=== PATIENT | female | born 1975 | race Two or more races ===

== ENCOUNTER 2020-05-31 16:08 | Outpatient (CLI) | payer OTHER, SELFPAY ==
--- NOTE | ~2020-05-31 | MM_ITS ---
EXAMINATION: MM screening marium BI w franko HISTORY: Screening mammogram TECHNIQUE: Craniocaudal and mediolateral oblique 3-D tomosynthesis images were obtained and synthetic 2-D images were generated. CAD analysis was submitted and interpreted. COMPARISON: 04/20/2019 bilateral complete breast ultrasound 04/07/2019 bilateral digital screening mammogram 11/11/2017 diagnostic right digital mammogram and complete right breast ultrasound 11/05/2017, 02/28/2016 bilateral digital screening mammogram examinations BREAST PARENCHYMAL COMPOSITION: The breasts are heterogeneously dense, which may obscure small masses . FINDINGS: There is a 2 cm low-density circumscribed opacity with halo sign in the mid to lower outer right breast, consistent with a breast cyst. Otherwise no interval suspicious mass, architectural dis tortion, malignant calcification, skin thickening or retraction of the right breast is evident. Scattered bilateral punctate benign microcalcifications. There are left breast mammographic asymmetries. Diagnostic left mammogram and left breast ultrasound examination are recommended. IMPRESSION: 1. Left mammographic asymmetries 2. Diagnostic left mammogram and left breast ultrasound examination are recommended. BI-RADS Category 0: Incomplete: Needs additional imaging evaluation. Reviewed, dictated and finalized at location A. REPORT WRITER IMPRESSION: 1. Left mammographic asymmetries 2. Diagnostic left mammogram and left breast ultrasound examination are recomme nded. BI-RADS Category 0: Incomplete: Needs additional imaging evaluation.
== END 2020-05-31 16:09 | disposition home or self-care (01) ==
LOC: ANHIMG 16:10
PROVIDERS: Visit Provider Nurse Practitioner
DX: Z12.31 Encounter for screening mammogram for malignant neoplasm of breast (principal); R92.8 Other abnormal and inconclusive findings on diagnostic imaging of breast
CPT/HCPCS: 77063; 77067

== ENCOUNTER 2020-06-23 13:00 | Outpatient (CLI) | payer OTHER, SELFPAY ==
--- NOTE | ~2020-06-23 | MMUS_ITS ---
EXAMINATION: MM diagnostic mammo unilat LT, US breast LT limited HISTORY: Left breast masses on screening mammogram TECHNIQUE: Additional 3-D tomosynthesis images of the left breast were performed and synthetic 2-D im ages were generated. CAD analysis was submitted and interpreted. High resolution limited left breast ultrasound was performed. COMPARISON: 05/31/2020, 04/07/2019, 11/05/2017, 02/28/2016 BREAST PARENCHYMAL COMPOSITION: The breasts are heterogeneously dense, which may obscure small masses . FINDINGS: MAMMOGRAPHIC FINDINGS: Multiple oval, obscured masses are present in the upper breast. One measuring 8 mm is seen in the mid dle third of the breast at the 12:00 location in line with the nipple axis. A 10 mm mass is present i n the middle third of the upper inner breast at the 11:00 location 4 cm from the nipple. Additional m asses are difficult to measure due to surrounding fibroglandular content. ULTRASOUND: There is a 9 mm x 8 mm oval, circumscribed, parallel, complex cystic and solid mass with no posterior features or internal vascularity at the 11:00 location near the nipple. An 11 mm x 5 mm mass with si milar sonographic features is present at the 1:00 location 4 cm from the nipple. Cysts are noted at t he 12:00, 1:00, and 3:00 locations. IMPRESSION: 1. Probably benign left breast masses. 2. Recommend 6 month follow-up left diagnostic mammogram and ultrasound. BI-RADS category 3, probably benign findings. Reviewed, dictated and finalized at location A. IMPRESSION: 1. Probably benign left breast masses. 2. Recommend 6 month follow-up left diagnostic mammogram and ultrasound. BI-RADS category 3, probably benign findings.
== END 2020-06-23 13:01 | disposition home or self-care (01) ==
LOC: ANHIMG 13:02
PROVIDERS: Visit Provider Obstetrics & Gynecology Gynecology
DX: R92.8 Other abnormal and inconclusive findings on diagnostic imaging of breast (principal)
CPT/HCPCS: 76642; 77065

== ENCOUNTER 2020-12-23 10:58 | Outpatient (CLI) | payer OTHER, SELFPAY ==
--- NOTE | ~2020-12-23 | MMUS_ITS ---
EXAMINATION: MM diagnostic marium LT w franko, US breast LT limited HISTORY: Follow-up left breast masses TECHNIQUE: Additional 3-D tomosynthesis images of the left breast were performed and synthetic 2-D im ages were generated. CAD analysis was submitted and interpreted. High resolution Limited left breast ultrasound was performed. COMPARISON: Comparison to multiple prior studies sequentially, with oldest reviewed study dated 02/28/2016. BREAST PARENCHYMAL COMPOSITION: The breasts are heterogenously dense, which may obscure small masses. FINDINGS: MAMMOGRAPHIC FINDINGS: Stable benign-appearing partially obscured breast masses. No new masses, calcifications or architectu ral distortion in the left breast to suggest malignancy. ULTRASOUND: There are in numerable cysts throughout the left breast corresponding to the mammographic findings. L argest in the subareolar location at 12:00 measuring 1.2 cm maximum dimension. No suspicious masses t o suggest malignancy. IMPRESSION: 1. No evidence for malignancy in the left breast. Benign cysts. 2. Routine yearly screening mammogram and regular clinical breast examination are recommended. BI-RADS Category 2: Benign finding(s). Reviewed, dictated and finalized at location A. IMPRESSION: 1. No evidence for malignancy in the left breast. Benign cysts. 2. Routine yearly screening mammogram and regular clinical breast examination a re recommended. BI-RADS Category 2: Benign finding(s).
== END 2020-12-23 10:59 | disposition home or self-care (01) ==
LOC: ANHIMG 11:00
PROVIDERS: Visit Provider Obstetrics & Gynecology Gynecology
DX: R92.8 Other abnormal and inconclusive findings on diagnostic imaging of breast (principal)
CPT/HCPCS: 76642; 77061; 77065; G0279

== ENCOUNTER → 2021-01-20 02:30 | Outpatient (CLI) | payer OTHER, SELFPAY ==
[2021-01-20 17:01] LABS: SARS-CoV-2 RNA PCR Negative
== END ==
PROVIDERS: Visit Provider Internal Medicine Gastroenterology
DX: Z01.812 Encounter for preprocedural laboratory examination (principal); Z20.822 Contact with and (suspected) exposure to COVID-19
CPT/HCPCS: C9803; U0003; U0005

== ENCOUNTER 2021-01-23 01:54 | Day surgery (SDC) | payer OTHER, SELFPAY ==
[2021-01-16 16:02] VITALS: BMI 23.4
--- NOTE | 2021-01-20 14:34 | PM.HPGS ---
History of Present Illness History of Present Illness Consent: Risks, benefits, and alternatives have been discussed and questions answered. Patient agrees to proceed with procedure. Chief complaint: neoplasm screening Narrative: Ranjan Gregory is a 45 year old female referred for colon cancer screening Review of Systems Review of Systems: All systems reviewed & are unremarkable except as noted in HPI and below PMFSH Social History Social History (System 09/22/19 @ 10:23 by Isis Diallo) Smoking status: Never smoker Second hand tobacco smoke exposure: Yes Alcohol intake: never Substance use: never Substance use type: does not use Living arrangements: with family Spiritual care concerns: No Meds Home Medications and Allergies Home Medications Medication Instructions Recorded Confirmed Type levothyroxine 25 mcg PO DAILY 01/16/21 01/16/21 History vitamin B complex 1 cap PO DAILY 01/16/21 01/16/21 History Allergies Allergy/AdvReac Type Severity Reaction Status Date / Time No Known Allergies Allergy Unknown Verified 01/16/21 15:59 NKFA Allergy Unknown Unknown Uncoded 01/16/21 15:59 Exam Resp: Auscultation: clear to auscultation bilaterally Cardio: Rate: regular rate Rhythm: regular rhythm GI: GI Palp: Yes Soft to palpation and No Tenderness to palpation present (GI) Assessment and Plan Assessment and plan (1) Colon cancer screening: Code(s): Z12.11 - Encounter for screening for malignant neoplasm of colon Status: Acute Assessment and Plan: Colonoscopy with possible biopsy or polypectomy or cautery or injection of substances.
[2021-01-23 08:12] VITALS: BP 119/75; PULSE 72; RESP 16; TEMP 36.9; O2SAT 100; BMI 22.8
[2021-01-23] MEDS: LACTATED RINGERS 1,000 ML 150 ML IV CONT (08:15)
--- NOTE | 2021-01-23 08:17 | P.PNAN_ITS ---
Anes - Initial Pre Proc Eval Procedure: Operation Date: 01/23/21 09:00 Proposed Procedures p Screening Colonoscopy - Silvio Plummer MD Date/Time: 01/23/21 08:17 Surgeon: Silvio Plummer MD Pre Op Diagnosis: neoplasm screening Patient Data Age: 45 Gender: F Height: 1.63 m Weight: 60.2 kg Last Vital Signs Temp 36.9 C 01/23/21 08:12 Pulse 72 01/23/21 08:12 Resp 16 01/23/21 08:12 BP 119/75 01/23/21 08:12 Pulse Ox 100 01/23/21 08:12 Allergies Allergy/AdvReac Type Severity Reaction Status Date / Time No Known Allergies Allergy Unknown Verified 01/23/21 08:11 Home Medications Medication Instructions Recorded Confirmed Type levothyroxine 25 mcg PO DAILY 01/16/21 01/23/21 History vitamin B complex 1 cap PO DAILY 01/16/21 01/23/21 History Patient hx anesthesia problems: none Family hx anesthesia problems: none Results Review: All pre-operative results and documents have been reviewed as part of the pre-operative evaluation. [facility] Past Medical History Medical History Hypothyroid Social History Social History Smoking status: Never smoker Second hand tobacco smoke exposure: Yes Alcohol intake: never Substance use: never Substance use type: does not use Living arrangements: with family Spiritual care concerns: No Anes - Eval Final PreProcedure Day of Procedure 01/23/21 08:17 Patient weight: normal Heart: regular rate and rhythm Lungs: clear to auscultation Airway: Mallampati scale class II Neurological: alert and oriented Last oral intake: >/= 8 hours ASA classification: II Emergent: no Anesthetic plan: proceed Anesthesia type and monitoring: general GIVS and standard monitoring Results Review: All pre-operative results and documents have been reviewed as part of the pre-operative evaluation. Informed Consent: The patient's anesthetic plan and its attendant risks and benefits were discussed with the patient/family/POA. Questions were solicited and answers provided to the satisfaction of the patient/family/POA.
[2021-01-23 09:06] VITALS: BP 97/63; PULSE 64; RESP 19; O2SAT 100
[2021-01-23 09:16] VITALS: BP 95/66; PULSE 61; RESP 18; O2SAT 100
[2021-01-23 09:26] VITALS: BP 102/67; PULSE 56; RESP 18; O2SAT 100
== END 2021-01-23 09:36 | disposition home or self-care (01) ==
PROVIDERS: Visit Provider Internal Medicine Gastroenterology
PROC: 0DJD8ZZ Inspection of Lower Intestinal Tract, Via Natural or Artificial Opening Endoscopic (ICD-10-PCS; CPT 45378; principal; 2021-01-23 09:00)
DX: Z12.11 Encounter for screening for malignant neoplasm of colon (principal); E03.9 Hypothyroidism, unspecified
CPT/HCPCS: 45378; J2704; J7120

== ENCOUNTER 2021-12-04 11:15 | Outpatient (CLI) | payer OTHER, SELFPAY ==
--- NOTE | ~2021-12-04 | MMUS_ITS ---
EXAMINATION: MM diagnostic marium BI w franko, US breast BI complete HISTORY: Bilateral breast pain TECHNIQUE: ML, MLO and CC 3-D tomosynthesis images of both breasts were performed and synthetic 2-D i mages were generated. CAD analysis was submitted and interpreted. High resolution bilateral complete breast ultrasound including all 4 quadrants and subareolar areas was performed. COMPARISON: 12/23/2020 diagnostic left mammogram and limited left breast ultrasound /03/2020 diagnostic left mammogram and limited left breast ultrasound 05/31/2020 bilateral screening mammogram 04/20/2019 bilateral complete breast ultrasound examination 04/07/2019 bilateral screening mammogram BREAST PARENCHYMAL COMPOSITION: The breasts are extremely dense, which lowers the sensitivity of mamm ography. FINDINGS: MAMMOGRAPHIC FINDINGS: No suspicious mass or architectural distortion, malignant calcification, skin thickening or retractio n or significant new or developing density is detected. ULTRASOUND: There are occasional bilateral breast cysts, including on the right at 8:00 3 cm from the nipple wher e 2 cysts measure 1.7 x 1.7 cm and 1.1 x 0.9 cm, and on the left at 12:00, where there is a septated cyst measuring 0.6 x 1.1 x 1.0 cm and at 2:00 4 cm from nipple, measuring 6 x 7 mm .No suspicious solid lesion or shadowing of either breast is detected. IMPRESSION: 1. Bilateral breast cysts 2. Routine mammographic screening is recommended BI-RADS Category 2: Benign finding(s). Reviewed, dictated and finalized at location A. IMPRESSION: 1. Bilateral breast cysts 2. Routine mammographic screening is recommended BI-RADS Category 2: Benign finding(s).
== END 2021-12-04 11:16 | disposition home or self-care (01) ==
PROVIDERS: Visit Provider Nurse Practitioner
DX: N64.4 Mastodynia (principal); N60.02 Solitary cyst of left breast; N60.01 Solitary cyst of right breast
CPT/HCPCS: 76641; 77062; 77066; G0279

== ENCOUNTER 2022-12-03 08:29 | Outpatient (CLI) | payer OTHER, SELFPAY ==
--- NOTE | ~2022-12-03 | US_ITS ---
Limited Abdominal Sonogram: Real-time sonographic imaging of the right upper quadrant was performed. Clinical History: Abnormal liver enzymes Findings: The liver appears normal in overall echotexture, without evidence of intrahepatic biliary dilatation. There is a 1.6 cm hyperechoic mass, as well as an additional 1.5 cm hyperechoic mass, bot h most likely representing hemangiomas. Main portal vein demonstrates normal direction of flow. The g allbladder is well distended, and appears normal with no evidence of gallstone or wall thickening. Th e common bile duct measures 2 mm. The visualized pancreas, aorta, and IVC are unremarkable. Impression: 2 hyperechoic hepatic masses, as above, most likely hemangiomas. This can be further confirmed with f ollow-up MR, if indicated. Reviewed, dictated and finalized at location . Impression: 2 hyperechoic hepatic masses, as above, most likely hemangiomas. This can be fu rther confirmed with follow-up MR, if indicated.
== END 2022-12-03 08:30 | disposition home or self-care (01) ==
PROVIDERS: PCP Emergency Medicine; Visit Provider Emergency Medicine
DX: R74.01 Elevation of levels of liver transaminase levels (principal); R93.2 Abnormal findings on diagnostic imaging of liver and biliary tract
CPT/HCPCS: 76705

== ENCOUNTER 2023-03-04 14:27 | Outpatient (CLI) | payer OTHER, SELFPAY ==
--- NOTE | ~2023-03-04 | MM_ITS ---
EXAMINATION: MM screening marium BI w franko HISTORY: Screening TECHNIQUE: Craniocaudal and mediolateral oblique 3-D tomosynthesis images were obtained and synthetic 2-D images were generated. CAD analysis was submitted and interpreted. COMPARISON: No prior studies for comparison. BREAST PARENCHYMAL COMPOSITION: The breasts are heterogeneously dense, which may obscure small masses FINDINGS: There are asymmetries in the right breast in the upper outer quadrant posteriorly. There ar e subareolar asymmetries of the left breast. IMPRESSION: 1. Bilateral breast asymmetries. 2. Additional mammographic views and possible breast ultrasound are recommended. BI-RADS Category 0: Incomplete: Needs additional imaging evaluation. Reviewed, dictated and finalized at location A. SENSEI IMPRESSION: 1. Bilateral breast asymmetries. 2. Additional mammographic views and possible breast ultrasound are recommended . BI-RADS Category 0: Incomplete: Needs additional imaging evaluation.
== END 2023-03-04 14:28 | disposition home or self-care (01) ==
PROVIDERS: PCP Emergency Medicine; Visit Provider Nurse Practitioner
DX: Z12.31 Encounter for screening mammogram for malignant neoplasm of breast (principal); R92.8 Other abnormal and inconclusive findings on diagnostic imaging of breast
CPT/HCPCS: 77063; 77067

== ENCOUNTER 2023-04-05 12:46 | Outpatient (CLI) | payer OTHER, SELFPAY ==
--- NOTE | ~2023-04-05 | MMUS_ITS ---
EXAMINATION: MM diagnostic marium BI w franko, US breast RT limited HISTORY: Possible right breast mass and left breast asymmetry on screening mammogram TECHNIQUE: Additional 3-D tomosynthesis images of the breasts were performed and synthetic 2-D images were generated. CAD analysis was submitted and interpreted. High resolution limited right breast ult rasound was performed. COMPARISON: 03/04/2023, 12/04/2021, 12/23/2020, 06/23/2020, 05/31/2020 FINDINGS: MAMMOGRAPHIC FINDINGS: Left breast: There is a return to baseline fibroglandular appearance with spot compression of the lef t breast in the area questioned on screening mammogram. Right breast: There is a 10 mm x 7 mm low-density mass with microlobulated margins in the posterior t hird of the upper outer quadrant of the breast at the 10:00 location, 7 cm from the nipple. ULTRASOUND: Right breast: There is a 7 mm x 3 mm oval, circumscribed hypoechoic mass with no posterior features, and no internal vascularity at the 9:00 location, 5 cm from the nipple. There is a 12 mm x 5 mm oval, circumscribed, parallel, hypoechoic mass with no posterior features or internal vascularity at the 1 0:00 location, 7 cm from the nipple corresponding to the mammographic finding in question. Multiple c ysts are seen in the subareolar breast. In addition, there are multiple anechoic and hypoechoic, prob ably benign masses in the upper quadrant of the breast. IMPRESSION: 1. Multiple probably benign right breast masses. 2. Recommend 6 month follow-up right diagnostic mammogram and ultrasound. BI-RADS category 3, probably benign findings. Reviewed, dictated and finalized at location A. NURSE IMPRESSION: 1. Multiple probably benign right breast masses. 2. Recommend 6 month follow-up right diagnostic mammogram and ultrasound. BI-RADS category 3, probably benign findings.
== END 2023-04-05 12:47 | disposition home or self-care (01) ==
LOC: ANHIMG 12:47
PROVIDERS: PCP Emergency Medicine; Visit Provider Obstetrics & Gynecology Gynecology
DX: R92.8 Other abnormal and inconclusive findings on diagnostic imaging of breast (principal)
CPT/HCPCS: 76642; 77062; 77066; G0279

== ENCOUNTER 2023-10-09 10:44 | Outpatient (CLI) | payer OTHER, SELFPAY ==
--- NOTE | ~2023-10-09 | MMUS_ITS ---
EXAMINATION: MM diagnostic marium RT w franko, US breast RT complete HISTORY: Follow-up breast masses. TECHNIQUE: Additional 3-D tomosynthesis images of the right breast were performed and synthetic 2-D i mages were generated. CAD analysis was submitted and interpreted. High resolution complete right roman st ultrasound was performed. COMPARISON: Comparison to multiple prior studies sequentially, with oldest reviewed study dated 11/2020. BREAST PARENCHYMAL COMPOSITION: Dense: The breasts are heterogeneously dense, which may obscure small masses FINDINGS: MAMMOGRAPHIC FINDINGS: There are no suspicious masses, calcifications or architectural distortion in the right breast to sug gest malignancy. ULTRASOUND: Complete US of all 4 quadrants of the right breast and retroareolar region was reviewed. At 12:00, 4 cm from the nipple, there is a hypoechoic mass measuring 9 x 6 x 6 mm with some angular margins At 3: 00 near the nipple there is a cluster of cysts, largest measuring 1.4 cm. At 3:00, 2 cm from the nipp le there is a 4 mm cyst. At 4:00 near the nipple there is a 1.4 cm cyst. At 9:00, 3 cm from the nippl e there is an 8 mm cyst. At 9:00, 1 cm from the nipple there is a 1 cm cyst. IMPRESSION: 1. Stable likely benign right breast mass at 12:00, 4 cm from the nipple measuring 9 mm, likely compl icated cysts. 2. Recommend 6 month follow-up Limited right breast ultrasound BI-RADS category 3, probably benign findings. Reviewed, dictated and finalized at location B. IMPRESSION: 1. Stable likely benign right breast mass at 12:00, 4 cm from the nipple measur ing 9 mm, likely complicated cysts. 2. Recommend 6 month follow-up Limited right breast ultrasound BI-RADS category 3, probably benign findings.
== END 2023-10-09 10:45 | disposition home or self-care (01) ==
PROVIDERS: PCP Emergency Medicine; Visit Provider Obstetrics & Gynecology Gynecology
DX: R92.8 Other abnormal and inconclusive findings on diagnostic imaging of breast (principal)
CPT/HCPCS: 76641; 77061; 77065; G0279

== ENCOUNTER 2024-04-13 10:44 | Outpatient (CLI) | payer OTHER, SELFPAY ==
--- NOTE | ~2024-04-13 | MMUS_ITS ---
EXAMINATION: MM diagnostic marium BI w franko, US breast BI complete HISTORY: Follow-up breast mass. TECHNIQUE: Additional 3-D tomosynthesis images of the breasts were performed and synthetic 2-D images were generated. CAD analysis was submitted and interpreted. High resolution bilateral complete breas t ultrasound was performed. COMPARISON: Comparison to multiple prior studies sequentially, with oldest reviewed study dated 12/04. BREAST PARENCHYMAL COMPOSITION: Dense: The breasts are heterogeneously dense, which may obscure small masses FINDINGS: MAMMOGRAPHIC FINDINGS: There are no suspicious masses, calcifications or architectural distortion to suggest malignancy. No significant interval change. ULTRASOUND: Complete US of all 4 quadrants of the breast/s and retroareolar region was reviewed. There are multip le cysts of both breasts. There are no suspicious masses in either breast to suggest malignancy. IMPRESSION: 1. No evidence for malignancy in either breast. 2. Routine yearly screening mammogram and regular clinical breast examination are recommended. BI-RADS CATEGORY 2 - BENIGN FINDINGS Reviewed, dictated and finalized at location A. ILER IMPRESSION: 1. No evidence for malignancy in either breast. 2. Routine yearly screening mammogram and regular clinical breast examination a re recommended. BI-RADS CATEGORY 2 - BENIGN FINDINGS
== END 2024-04-13 10:45 | disposition home or self-care (01) ==
LOC: ANHIMG 10:46
PROVIDERS: PCP Emergency Medicine; Visit Provider Nurse Practitioner
DX: N60.01 Solitary cyst of right breast (principal)
CPT/HCPCS: 76641; 77062; 77066; G0279